=== PATIENT | male | born 1975 | race Caucasian/White ===

== ENCOUNTER 2019-06-09 05:37 | Day surgery (SDC) | payer OTHER ==
[~2019-06-09 05:37] MED LIST: ALPRAZOLAM ODT2 MG PO; RESTORIL30 M1 PO; WELLBUTRIN XL300 MG PO
== END 2019-06-09 18:00 | disposition home or self-care (01) ==
LOC: CIR.AMB 05:37
DX: K64.2 Third degree hemorrhoids (principal); K64.4 Residual hemorrhoidal skin tags